=== PATIENT | female | born 1995 | race Two or more races ===

== ENCOUNTER 2021-02-23 18:23 | Emergency (ER) | payer MEDICAID ==
--- NOTE | 2021-02-23 19:56 | ED Physician Documentation ---
History of Present Illness - Stated complaint Stated Complaint: SLICED LT HAND - Chief complaint Chief Complaint: Laceration - History obtained from History obtained from: Patient - Additonal information Additional information: 25yF p/w laceration to L hand about 2 h [employer] boat [employer] while cutting avocado. pain is 4/10, numbness/tingling, currently hemostatic. Review of Systems Skin: reports: Laceration (s) PD PAST MEDICAL HISTORY - Allergies Allergies/Adverse Reactions: Allergies Allergy/AdvReac Type Severity Reaction Status Date / Time adhesive tape Allergy Hives Verified 02/23/21 18:36 PD ED PE NORMAL - Vitals Vital signs reviewed: Yes - General General: Alert and oriented X 3, No acute distress, Well developed/nourished - HEENT HEENT: Atraumatic, PERRL, EOMI - Neck Neck: Supple, no meningeal sign - Derm Derm: Normal color, Warm and dry, Other (2cm lac of L thenar eminence without tendon or muscle involvement. no foreign body) - Extremities Extremities: Other (2+ radial pulse bilaterally. normal sensation, movement, cap refill. ) - Neuro Neuro: No motor deficit, No sensory deficit - Psych Psych: Other (anxious affect) Results - Vitals Vitals: Vital Signs - 24 hr 02/23/21 18:32 Temperature 36.0 C L Heart Rate 82 Respiratory 16 Rate Blood Pressure 134/66 H O2 Saturation 96 Oxygen O2 Source Room air Procedures - Laceration (location) Hand left Palmar Length in cm: 2 Wound type: Linear Anesthesia: Lidocaine 1% with epi Wound preparation: Irrigated copiously NS Skin layer closure: Sutures - enter # (2) Other: Patient tolerated well, No complications, Neurovascular intact, Dressing applied, Tetanus UTD PD MEDICAL DECISION MAKING - ED course ED course: 25-year-old woman present with a laceration of left thenar eminence. Repaired without difficulty. Return precautions given. Plan to remove in 14 days. Departure - Departure Disposition: 01 Home, Self Care Clinical Impression: Laceration of hand Condition: Good Instructions: ED Laceration All Comments: You were seen in the emergency department for a laceration of your head. 2 stitches were placed. Please monitor for any signs of infection and have the stitches removed in 14 days. You can do it here or at urgent care or walk in clinic, or call your doctor. Return to the emergency department if you have any new or worsening symptoms or other concerns. Forms: Activity restrictions
[2021-02-23 21:00] VITALS: BP 128/64
== END 2021-02-23 20:59 | disposition home or self-care (01) ==
LOC: ED 18:23
DX: S61.412A Laceration without foreign body of left hand, initial encounter (principal); W26.0XXA Contact with knife, initial encounter; Y93.G1 Activity, food preparation and clean up
CPT/HCPCS: 12001; 99283